=== PATIENT | male | born 1975 | race Caucasian/White ===

== ENCOUNTER 2017-06-23 12:28 | Emergency (ER) | payer OTHER ==
[~2017-06-23] VITALS: Ht 152.4 cm; Wt 80.0 kg
[2017-06-23 12:32] VITALS: Ht 152.4 cm; Wt 80.0 kg
--- NOTE | 2017-06-23 14:47 | ERD ---
ER Documentation Chief Complaint Date/Time DATE: 06/23/17 TIME: 14:44 Chief Complaint refill of meds, asymptomatic HPI This is a 41-year-old male who presents the emergency department today for evaluation of his high blood pressure. Patient states that he went to [facility] today and had significantly high blood pressure and they called the paramedics and sent him to the emergency department. States in the past he was taking hydrochlorothiazide, lisinopril and amlodipine for his blood pressure but he had stopped taking it for the past month because he had relapsed using meth. States that he has not used for a couple of weeks and is currently in a [facility] [place] [facility]. Patient states he does have a slight headache but feels it is because he is hungry. Denies any dizziness, blurred vision, vomiting, chest pain or shortness of breath. ROS All systems reviewed and are negative except as per history of present illness. Medications Home Meds Active Scripts Lisinopril* (Lisinopril*) 10 Mg Tablet, 10 MG PO DAILY, #30 TAB Prov:LUIS MEDELLIN PA-C 06/23/17 Hydrochlorothiazide* (Hydrochlorothiazide*) 25 Mg Tab, 25 MG PO DAILY, #30 TAB Prov:LUIS MEDELLIN PA-C 06/23/17 PMhx/Soc Medical and Surgical Hx: pt denies Medical Hx, pt denies Surgical Hx Hx Alcohol Use: Yes (PREVIOUS) Hx Substance Use: Yes (PREVIOUS) Hx Tobacco Use: Yes Smoking Status: Former smoker Physical Exam Vitals Vital Signs Date Time Temp Pulse Resp B/P Pulse Ox O2 Delivery O2 Flow Rate FiO2 06/23/17 17:15 98.1 69 16 160/88 99 06/23/17 16:40 72 161/91 06/23/17 15:37 82 16 207/126 99 06/23/17 12:32 98.1 82 18 207/133 99 Physical Exam Const: NAD, talkative Head: Atraumatic Eyes: Normal Conjunctiva PERRLA. EOM intact. ENT: Normal External Ears, Nose and Mouth. Neck: Full range of motion..~ No meningismus. Resp: Clear to auscultation bilaterally Cardio: Regular rate and rhythm, no murmurs Abd: Soft, non tender, non distended. Normal bowel sounds Skin: No petechiae or rashes Back: No midline or flank tenderness Ext: No cyanosis, or edema Neur: Awake and alert cranial nerves II through XII intact. No gait ataxia. Psych: Normal Mood and Affect Results 24 hrs Current Medications Medications (Trade) Dose Ordered Sig/Julian Route PRN Reason Start Time Stop Time Status Last Admin Dose Admin Clonidine (Catapres) 0.2 mg ONCE ONCE PO 06/23/17 14:30 06/23/17 14:31 DC 06/23/17 14:32 Labetalol HCl (Labetalol) 20 mg ONCE ONCE IV 06/23/17 16:00 06/23/17 16:01 DC 06/23/17 15:57 Procedures/MDM This a 41-year-old male who presents the emergency department today for evaluation of his hypertension. Patient had been sent here to the emergency department by [facility] by ambulance for multiple elevated blood pressures. On intake patient's blood pressure was elevated here in the emergency department at 207/133. Patient described a slight frontal headache however he denied any other symptoms. He has no chest pain, shortness of breath , dizziness blurred vision. I do not feel the patient requires a head CT scan or workup at this time. Low suspicion for acute hemorrhage, mass, abscess, meningitis. Patient is very talkative in the exam room. He has no focal neurologic deficits or gait ataxia. I did discuss the patient with Dr. Storm given his significantly elevated blood pressure and she has recommended 0.2 mg of clonidine here in the emergency department. Blood pressure remained elevated at 207/126 after clonidine. I was asked by Dr. Storm to discuss the case with the other attending physician Dr. Breen. Dr. Breen recommended patient be given IV labetalol. After patient was given IV labetalol his blood pressure improved to 161/91. Patient did indicate that he does have a appointment for follow-up at the clinic this Thursday. He was instructed to keep his appointment. Symptoms at this time is consistent with elevated blood pressure. The patient' s first visit to this emergency department I do not have information for other visits to compare previous blood pressures are vital signs. Low suspicion for hypertensive emergency at this time. Patient will be given a prescription for lisinopril and hydrochlorothiazide. At this time the patient is stable for discharge and outpatient management. Patient should follow up with their PCP in the next 1-2 days. They may return to the emergency department sooner for any persistent or worsening of symptoms. Patient understood and agreed with the plan. Departure Diagnosis: Primary Impression: High blood pressure Hypertension type: unspecified Qualified Code: I10 - Hypertension, unspecified type Condition: LUIS Sosa PA-C Jun 23, 2017 14:47
[2017-06-23] MEDS ORDERED: LABETALOL HCL 20MG INJ IV ONE (16:00)
[2017-06-23] MEDS ORDERED: HYDR25TA6 PO (17:03)
[2017-06-23] MEDS ORDERED: LISI10TA2 PO (17:03)
[2017-06-23 17:15] VITALS: BP 160/88; PULSE 69; RESP 16; TEMP 98.1
== END 2017-06-23 17:15 | disposition home or self-care (01) ==
LOC: FTE 12:28
DX: I10 Essential (primary) hypertension (principal); Z87.891 Personal history of nicotine dependence
CPT/HCPCS: 96374; Z7502; Z7610